=== PATIENT | male | born 1985 | race Two or more races ===

== ENCOUNTER 2025-02-20 11:44 | Emergency (ER) | payer MEDICAID, OTHER ==
[~2025-02-20] VITALS: Ht 175.3 cm; Wt 94.1 kg
--- NOTE | 2025-02-20 13:31 | ED.PDOC ---
History of Present Illness HPI Comments 39-year-old male with no reported PMHx presents with a chief complaint of cough, nasal congestion, and fever x 3 days. Patient states that he feels increasingly SOB, especially at night. Patient is sating well on room air and able to speak in full complete sentences. No use of supplemental oxygen. Patient mentions that he feels congested and sounds very nasally. Patient denies any sick contacts at home. No other symptoms or modifying factors present at this time. Chief Complaint: Flu like Time Seen by MD: 13:22 Reviewed Notes: Nurses Notes, Medications, Allergies Allergies: Coded Allergies: NO KNOWN ALLERGIES (Unverified , 02/20/25) Home Meds Active Scripts Guaifenesin (Mucinex) 600 Mg Tab, 1 TAB PO BID for 7 Days, #14 TAB 0 Refills Prov:AUDREY LERMA NP 02/20/25 Promethazine-Dm (Promethazine Dm 6.25-15 mg/5Ml) 1 Alice Alice, 5 ML PO TID for 10 Days, #150 ML 0 Refills Prov:AUDREY LERMA NP 02/20/25 Ibuprofen Micronized (Ibuprofen) 600 Mg Tab, 600 MG PO TIDPRN PRN for 10 Days, #30 TAB 0 Refills Prov:AUDREY LERMA NP 02/20/25 Amoxicillin & Pot Clavulanate (AUGMENTIN TABLET) 875 Mg Tb, 875 MG PO BID for 7 Days, #14 TAB 0 Refills Prov:AUDREY LERMA NP 02/20/25 Loratadine (Loratadine) 10 Mg Tab, 10 MG PO DAILY for 30 Days, #30 TAB 0 Refills Prov:AUDREY LERMA NP 02/20/25 Fluticasone Propionate (Nasal) (Flonase Allergy Relief) 50 Mcg/Act Spr, 50 MCG N A DAILY for 30 Days, #1 SPRAY 0 Refills Prov:AUDREY LERMA NP 02/20/25 Sodium Chloride-Sodium Bicarbo (Neti Pot Kit Sinus Wash/C 2300-700 mg) 1 Kit Kit, 1 KIT NA UD for 30 Days, #1 KIT 0 Refills Prov:AUDREY LERMA NP 02/20/25 Information Source: Patient Mode of Arrival: Ambulatory Severity: Moderate Timing: Days Duration: Since onset Prehospital treatment: None Past Medical History PAST MEDICAL HISTORY: Denies Surgical History: Denies all surgeries Family History Family History: Reviewed,noncontributory to illness Social History Smoker: Non-Smoker Alcohol: Denies ETOH Use Drugs: Denies Drug Use Lives In: Home Constitutional: reports: fever; denies: chills, diaphoresis, fatigue, malaise, sweats, weakness, others EENTM: reports: nose congestion; denies: blurred vision, double vision, ear bleeding, ear discharge, ear drainage, ear pain, ear ringing, eye pain, eye redness, hearing loss, mouth pain, mouth swelling, nasal discharge, nose bleeding, nose pain, photophobia, tearing, throat pain, throat swelling, voice changes, others Respiratory: reports: cough; denies: hemoptysis, orthopnea, SOB at rest, shortness of breath, SOB with excertion, stridor, wheezing, others Cardiovascular: denies: chest pain, dizzy spells, diaphoresis, Dyspnea on exertion, edema, irregular heart beat, left arm pain, lightheadedness, palpitations, PND, syncope, others Gastrointestinal: denies: abdomen distended, abdominal pain, blood streaked bowels, constipated, diarrhea, dysphagia, difficulty swallowing, hematemesis, melena, nausea, poor appetite, poor fluid intake, rectal bleeding, rectal pain, vomiting, others Genitourinary: denies: burning, dysuria, flank pain, frequency, hematuria, incontinence, penile discharge, penile sore, pain, testicle pain, testicle s welling, urgency, others Neurological: denies: dizziness, fainting, headache, left sided numbness, left sided weakness, numbness, paresthesia, pre-existing deficit, right sided numbness, right sided weakness, seizure, speech problems, tingling, tremors, weakness, others Musculoskeletal: denies: back pain, gout, joint pain, joint swelling, muscle pain, muscle stiffness, neck pain, others Integumetry: denies: bruises, change in color, change in hair/nails, dryness, laceration, lesions, lumps, rash, wounds, others Allergic/Immunocompromised: denies: Difficulty Healing, Frequent Infections, Hives, Itching, others Hematologic/Lymphatic: denies: anemia, blood clots, easy bleeding, easy bruising, swollen glands, others Endocrine: denies: excessive hunger, excessive sweating, excessive thirst, excessive urination, flushing, intolerance to cold, intolerance to heat, unexplained weight gain, unexplained weight loss, others Psychiatric: denies: anxiety, bipolar disorder, depression, hopeless, panic disorder, schizophrenia, sleepless, suicidal, others All Other Systems: Reviewed and Negative Physical Exam General Appearance: No Apparent Distress, Normal HEENT: Normal ENT Inspection, Pharynx Normal, TMs Normal, Other (Frontal and maxillary TTP) Neck: Full Range of Motion, Non-Tender, Normal, Normal Inspection Respiratory: Chest Non-Tender, Lungs Clear, No Accessory Muscle Use, No Respiratory Distress, Normal Breath Sounds Cardiovascular: No Edema, No JVD, No Murmur, No Gallop, Normal Peripheral Pulses, Regular Rate/Rhythm Breast Exam: Deferred Gastrointestinal: No Organomegaly, Non Tender, No Pulsatile Mass, Normal Bowel Sounds, Soft Genitalia: Deferred Pelvic: Deferred Rectal: Deferred Extremities: No calf tenderness, Normal capillary refill, Normal inspection, Normal range of motion, Non-tender, No pedal edema Musculoskeletal : Apperance: Normal Neurologic: Alert, floor layer tile II-XII nml as Tested, No Motor Deficits, Normal Affect, Normal Mood, No Sensory Deficits Cerebellar Function: Normal Reflexes: Normal Skin: Dry, Normal Color, Warm Lymphatic: No Adenopathy Was a procedure done? Was a procedure done?: No Differential Dx Considerations may include: URI, sinusitis, pharyngitis, viral syndrome X-Ray, Labs, Meds, VS Vital Signs Date Time Temp Pulse Resp B/P (MAP) Pulse Ox O2 Delivery O2 Flow Rate FiO2 02/20/25 12:04 97.7 88 20 149/59 (89) 97 97.7 X-Ray, Labs, Meds, VS Comment Differential considered but not limited to frontal headache, migraine, URI. I a lso considered orbital cellulitis, osteomyelitis, cerebral abscess, meningitis, frontal bone abscess (Pott puffy tumor), however, this is less likely as the patient does not have any red flags. Patient is not immunocompromised, they are non-toxic, there are no high fevers and do not present with an intractable headache, During the physical exam there was TTP over the frontal and maxillary sinuses consistent with sinusitis therefore routine imaging such as CT was deferred during this visit. Prescribed antibiotics for presentation of symptoms. Complete course of antibiotic therapy even if symptoms improve or resolve. There should be no leftover antibiotics as this can lead to antibiotic resistant bacteria and even worse infection. Potential side effects discussed including abdominal pain, nausea, diarrhea. Also recommend antihistamines, decongestants and antipyretics as needed. Time of 1ST Reevaluation: 13:52 Reevaluation 1ST: Improved Patient Education/Counseling: Diagnosis, Treatment Family Education/Counseling: No Family Present Departure 1 Departure Time of Disposition: 13:33 Impression: Primary Impression: Sinusitis Qualified Codes: J01.10 - Acute frontal sinusitis, unspecified Disposition: HOME / SELF CARE / HOMELESS Condition: Fair e-Prescriptions Guaifenesin (Mucinex) 600 Mg Tab 1 TAB PO BID for 7 Days, #14 TAB 0 Refills Prov: AUDREY LERMA NP 02/20/25 Promethazine-Dm (Promethazine Dm 6.25-15 mg/5Ml) 1 Alice Alice 5 ML PO TID for 10 Days, #150 ML 0 Refills Prov: AUDREY LERMA NP 02/20/25 Ibuprofen Micronized (Ibuprofen) 600 Mg Tab 600 MG PO TIDPRN PRN for 10 Days, #30 TAB 0 Refills Prov: AUDREY LERMA NP 02/20/25 Amoxicillin & Pot Clavulanate (AUGMENTIN TABLET) 875 Mg Tb 875 MG PO BID for 7 Days, #14 TAB 0 Refills Prov: AUDREY LERMA NP 02/20/25 Loratadine (Loratadine) 10 Mg Tab 10 MG PO DAILY for 30 Days, #30 TAB 0 Refills Prov: AUDREY LERMA NP 02/20/25 Fluticasone Propionate (Nasal) (Flonase Allergy Relief) 50 Mcg/Act Spr 50 MCG NA DAILY for 30 Days, #1 SPRAY 0 Refills Prov: AUDREY LERMA NP 02/20/25 Sodium Chloride-Sodium Bicarbo (Neti Pot Kit Sinus Wash/C 2300-700 mg) 1 Kit Kit 1 KIT NA UD for 30 Days, #1 KIT 0 Refills Prov: AUDREY LERMA NP 02/20/25 Critical Care Note Critical Care Time?: No Stability Stability form required: No Heart Score Heart Score: Heart Score Response (Comments) Value History N/A 0 EKG N/A 0 Age N/A 0 Risk Factors N/A 0 Troponin N/A 0 Total 0 I personally scribed for AUDREY LERMA NP ([email or web address]) on 02/20/25 at 13:31. Electronically submitted by Bharath Oliver [email or web address]). AUDREY LERMA NP February 20, 2025 13:31
[2025-02-20] MEDS ORDERED: IBUP1TAB5 PO (13:37)
[2025-02-20] MEDS ORDERED: GUAI600T78 PO (13:37)
[2025-02-20] MEDS ORDERED: AUG875T PO (13:37)
[2025-02-20] MEDS ORDERED: LORA-1126 PO (13:37)
[2025-02-20] MEDS ORDERED: SODI1KIT2 (13:37)
[2025-02-20] MEDS ORDERED: FLUT1SPR5 (13:37)
[2025-02-20] MEDS ORDERED: PROM1SOL4 PO (13:37)
[2025-02-20 13:51] VITALS: BP 132/52; PULSE 78; RESP 16; TEMP 98; O2SAT 97
== END 2025-02-20 13:52 | disposition home or self-care (01) ==
LOC: ER 11:55
DX: J32.9 Chronic sinusitis, unspecified (principal); R50.9 Fever, unspecified

== ENCOUNTER 2025-04-07 00:21 | Emergency (ER) | payer MEDICAID, OTHER ==
[~2025-04-07] VITALS: Ht 175.3 cm; Wt 93.0 kg
[~2025-04-07 00:21] MED LIST: AUG875T PO; FLUT1SPR5; GUAI600T78 PO; IBUP1TAB5 PO; LORA-1126 PO; PROM1SOL4 PO; SODI1KIT2
[2025-04-07 02:04] LABS: Hematocrit 46.9 % (41.0-53.0); Hemoglobin 15.9 g/dL (13.5-17.5); Mean Corpuscular Hemoglobin 29.9 pg (28.0-32.0); Mean Corpuscular Volume 88.3 fL (80.0-100.0); Nucleated Red Blood Cells % 0.1 %
--- NOTE | 2025-04-07 02:08 | DVH ---
EXAM: XY CHEST TWO VIEWS ROUTINE CLINICAL HISTORY: DIZZINESS TECHNIQUE: Frontal and Views of the chest WID: COMPARISON: None FINDINGS: Lines and tubes: None Chest: The heart size and pulmonary vasculature is within normal limits. No pleural effusion, pneumothorax, or consolidation. The osseous structures are grossly intact. Mild multilevel thoracic spondylosis. IMPRESSION: No acute cardiopulmonary abnormality.
[2025-04-07 02:26] LABS: Alanine Aminotransferase 30 U/L (7-40); Alkaline Phosphatase 57 U/L (46-116); Anion Gap 12 (5-15); BUN/Creatinine Ratio 18.5 (10.0-20.0); Calcium 9.3 mg/dL (8.7-10.4); Carbon Dioxide 22 mmol/L (20-31); Chloride 103 mmol/L (98-107); Glucose 105 mg/dL (74-106); Magnesium 2.1 mg/dL (1.6-2.6); Potassium 3.8 mmol/L (3.5-5.1); Sodium 137 mmol/L (136-145); Total Protein 7.6 g/dL (5.7-8.2)
[2025-04-07 02:27] LABS: Bilirubin, Total 1.0 mg/dL (0.2-1.0)
[2025-04-07 02:28] LABS: Urine Protein, UAD TRACE (Negative)
[2025-04-07 02:31] LABS: Albumin 4.8 g/dL (3.2-4.8); Blood Urea Nitrogen 23 mg/dL (9-23)
[2025-04-07 03:05] LABS: Amphetamine Screen, Urine Neg (NEGATIVE)
[2025-04-07 03:06] LABS: Barbiturate Scree,Urine Neg (NEGATIVE); Benzodiazephine Screen, Urine Neg (NEGATIVE); Cannabinoid Screen, Urine Pos (NEGATIVE); Cocaine Screen, Urine Neg (NEGATIVE); Opiate Scree,Urine Neg (NEGATIVE); Phencyclidine Screen, Urine Neg (NEGATIVE)
[2025-04-07 03:39] VITALS: BP 101/58; PULSE 53; RESP 18; TEMP 97.6; O2SAT 97
[2025-04-07] MEDS: SODIUM CHLORIDE 0.9% 1,000 ML IV ONE (03:47)
[2025-04-07] MEDS ORDERED: MECL-90 PO (04:24)
--- NOTE | 2025-04-07 04:25 | ED.PDOC ---
HPI (NEURO) HPI Comments PT PRESENTED TO ED FOR SUDDEN ONSET DIZZINESS X2 HOURS WITH BLURRED VISION. PT DENIED NAUSEA. BEFAST NEGATIVE. Chief Complaint: Dizziness Time Seen by MD: 01:23 Reviewed Notes: Nurses Notes, Medications, Allergies Information Source: Patient Mode of Arrival: Ambulatory Past Medical History PAST MEDICAL HISTORY: Denies Surgical History: Denies all surgeries Family History Family History: Reviewed,noncontributory to illness Social History Smoker: Non-Smoker Alcohol: Denies ETOH Use Drugs: Denies Drug Use Lives In: Home X-Ray, Labs, Meds, VS Vital Signs Date Time Temp Pulse Resp B/P (MAP) Pulse Ox O2 Delivery O2 Flow Rate FiO2 04/07/25 03:39 97.6 53 18 101/58 (72) 97 97.6 04/07/25 01:39 77 04/07/25 01:32 98.7 92 20 135/73 (93) 96 98.7 Lab Test 04/07/25 01:36 04/07/25 01:35 04/07/25 01:30 Range/Units White Blood Count 10.9 H 4.4-10.8 10^3/uL Red Blood Count 5.31 4.5-5.90 10^6/uL Hemoglobin 15.9 13.5-17.5 g/dL Hematocrit 46.9 41.0-53.0 % Mean Corpuscular Volume 88.3 80.0-100.0 fL Mean Corpuscular Hemoglobin 29.9 28.0-32.0 pg Mean Corpuscular Hemoglobin Concent 33.9 32.0-36.0 g/dL Red Cell Distribution Width 14.6 H 11.8-14.3 % Platelet Count 272 140-450 10^3/uL Mean Platelet Volume 8.1 6.9-10.8 fL Neutrophils (%) (Auto) 70.3 37.0-80.0 % Lymphocytes (%) (Auto) 22.4 10.0-50.0 % Monocytes (%) (Auto) 6.6 0.0-12.0 % Eosinophils (%) (Auto) 0.2 0.0-7.0 % Basophils (%) (Auto) 0.5 0.0-2.0 % Neutrophils # (Auto) 7.7 1.6-8.6 10 ^3/uL Lymphocytes # (Auto) 2.4 0.4-5.4 10 ^3/uL Monocytes # (Auto) 0.7 0-1.3 10 ^3/uL Eosinophils # (Auto) 0 0-0.8 10 ^3/uL Basophils # (Auto) 0.1 0-0.2 10 ^3/uL Nucleated Red Blood Cells 0.1 % Sodium Level 137 136-145 mmol/L Potassium Level 3.8 3.5-5.1 mmol/L Chloride Level 103 98-107 mmol/L Carbon Dioxide Level 22 20-31 mmol/L Anion Gap 12 5-15 Blood Urea Nitrogen 23 9-23 mg/dL Creatinine 1.24 0.700-1.30 mg/dL Glomerular Filtration Rate Calc 77 >90 mL/min BUN/Creatinine Ratio 18.5 10.0-20.0 Serum Glucose 105 74-106 mg/dL Calcium Level 9.3 8.7-10.4 mg/dL Magnesium Level 2.1 1.6-2.6 mg/dL Total Bilirubin 1.0 0.2-1.0 mg/dL Aspartate Amino Transferase (AST) 51 H 13-40 U/L Alanine Aminotransferase (ALT) 30 7-40 U/L Alkaline Phosphatase 57 46-116 U/L Troponin I High Sensitivity 3 L </=54 ng/L Total Protein 7.6 5.7-8.2 g/dL Albumin 4.8 3.2-4.8 g/dL Thyroid Stimulating Hormone (TSH) 0.87 0.55-4.78 uIU/mL Urine Color Yellow Yellow Urine Clarity Clear Clear Urine pH 5.5 5.0-9.0 Urine Specific [place] 1.038 H 1.001-1.035 Urine Protein Trace H Negative Urine Ketones 2+ H Negative Urine Blood Negative Negative /uL Urine Nitrite Negative Negative Urine Bilirubin Negative Negative Urine Urobilinogen Normal Negative mg/dL Urine Leukocyte Esterase 2+ Negative /uL Urine RBC 1 0 - 3 /hpf Urine Microscopic WBC 3 0-3 /HPF Urine Squamous Epithelial Cells Few <5 /hpf Urine Bacteria None seen None Seen /hpf Urine Mucus Few None Seen Urine Glucose Normal Normal mg/dL Urine Opiates Screen Neg NEGATIVE Urine Fentanyl Screen Neg NEGATIVE Urine Barbiturates Screen Neg NEGATIVE Urine Phencyclidine Screen Neg NEGATIVE Urine Amphetamines Screen Neg NEGATIVE Urine Benzodiazepines Screen Neg NEGATIVE Urine Cocaine Screen Neg NEGATIVE Urine Cannabinoids Screen Pos NEGATIVE POC Glucose 116 H 70-106 mg/dl Current Medications Medications (Trade) Dose Ordered Sig/Tima Route Start Time Stop Time Status Last Admin Sodium Chloride 1,000 ml @ 1,000 mls/hr Q1H ONCE IV 04/07/25 03:15 04/07/25 04:14 DC 04/07/25 03:47 Time of 1ST Reevaluation: 01:23 Reevaluation 1ST: Unchanged Reevaluation 2ND: Improved Patient Education/Counseling: Diagnosis, Treatment, Prognosis, Need For Follow Up Family Education/Counseling: Diagnosis, Treatment, Prognosis, Need For Follow Up Departure 1 Departure Time of Disposition: 04:23 Impression: Primary Impression: Vertigo Disposition: 01 HOME / SELF CARE / HOMELESS Condition: Stable e-Prescriptions Meclizine Hcl (Meclizine Hcl) 25 Mg Tab 25 MG PO BID PRN for 6 Days, #12 TAB Prov: IDANIA KILGORE 04/07/25 Discharged With: Relative (Sibling) Critical Care Note Critical Care Time?: No Stability Stability form required: No IDANIA KILGORE Apr 07, 2025 04:25
[2025-04-07] MEDS: MECLIZINE HCL 25 MG TAB PO ONE (04:27)
--- NOTE | 2025-04-08 06:56 | ECG ---
[facility] Test Date: 2025-04-07 Test Time: 01:32:14 Pat Name: GERRY ALONZO Department: ED Room: Gender: M Adjunct Instructor: ZARA : 1985 Requested By: IDANIA KILGORE Order Number: [id number] Reading MD: Measurements Intervals [place] Rate: 77 P: 58 NE: 152 QRS: 43 QRSD: 85 T: 37 QT: 368 QTc: 417 Interpretive Statements Sinus rhythm Abnormal R-wave progression, early transition Borderline ST elevation, anterior leads Please click the below link to view image of tracing.
== END 2025-04-07 04:33 | disposition home or self-care (01) ==
LOC: ER 00:21
DX: R42 Dizziness and giddiness (principal); Z79.899 Other long term (current) drug therapy
CPT/HCPCS: 36415; 71046; 80053; 80307; 81001; 82947; 83735; 84443; 84484; 85025; 93005; 96360; 99285; J7030; J8597; 82962

== ENCOUNTER 2025-05-11 13:20 | Emergency (ER) | payer OTHER ==
[~2025-05-11] VITALS: Ht 175.3 cm; Wt 93.0 kg
[2025-05-11 13:21] VITALS: BP 112/55; PULSE 72; RESP 18; TEMP 97.8; O2SAT 96
--- NOTE | 2025-05-11 14:42 | ED.PDOC ---
Musculoskeletal HPI Comments A 39-YEAR-OLD MALE WITH NO PMHx PRESENTS WITH A CHIEF COMPLAINT OF LEFT ELBOW PAIN X ONSET THIS MORNING. PATIENT STATES THAT HE IS UNABLE TO FULLY EXTEND HIS LEFT ELBOW. PATIENT REPORTS THAT HE SPONTANEOUSLY STARTED TO FEEL THIS WAY THIS MORNING. PER PT, POSSIBLE SLEEP POSITION CAUSED HIS LEFT ELBOW PAIN. PT DENIES FALL INJURY AND OTHER COMPLAINTS. PATIENT HAS NO DEFORMITIES AT THIS TIME. NO OTHER SYMPTOMS OR MODIFYING FACTORS PRESENT AT THIS TIME. Chief Complaint: Upper Extremity Time Seen by MD: 14:34 Reviewed Notes: Nurses Notes, Medications, Allergies Allergies: Coded Allergies: NO KNOWN ALLERGIES (Unverified , 02/20/25) Home Meds Active Scripts Guaifenesin (Mucinex) 600 Mg Tab, 1 TAB PO BID for 7 Days, #14 TAB 0 Refills Prov:AUDREY LERMA NP 02/20/25 Promethazine-Dm (Promethazine Dm 6.25-15 mg/5Ml) 1 Alice Alice, 5 ML PO TID for 10 Days, #150 ML 0 Refills Prov:AUDREY LERMA NP 02/20/25 Ibuprofen Micronized (Ibuprofen) 600 Mg Tab, 600 MG PO TIDPRN PRN for 10 Days, #30 TAB 0 Refills Prov:AUDREY LERMA NP 02/20/25 Amoxicillin & Pot Clavulanate (AUGMENTIN TABLET) 875 Mg Tb, 875 MG PO BID for 7 Days, #14 TAB 0 Refills Prov:AUDREY LERMA NP 02/20/25 Loratadine (Loratadine) 10 Mg Tab, 10 MG PO DAILY for 30 Days, #30 TAB 0 Refills Prov:AUDREY LERMA NP 02/20/25 Fluticasone Propionate (Nasal) (Flonase Allergy Relief) 50 Mcg/Act Spr, 50 MCG NA DAILY for 30 Days, #1 SPRAY 0 Refills Prov:AUDREY LERMA NP 02/20/25 Sodium Chloride-Sodium Bicarbo (Neti Pot Kit Sinus Wash/C 2300-700 mg) 1 Kit Kit, 1 KIT NA UD for 30 Days, #1 KIT 0 Refills Prov:AUDREY LERMA NP 02/20/25 Information Source: Patient Mode of Arrival: Ambulatory Location: Left Extremity Location: Elbow Timing: Hours Prehospital treatment: None Severity: Moderate Able to Move Extremity: No Bear Weight: Limited Pain: Moderate Hand Dominance: Right Mechanism: Spontaneous Circumstances: Spontaneous Onset of Symptoms: Spontaneous Symptoms: Pain DVT Risk Factors: NONE Last Tetanus: UTD Associated signs and symptoms: Elbow pain Past Medical History PAST MEDICAL HISTORY: Denies Surgical History: Denies all surgeries Family History Family History: Reviewed,noncontributory to illness Social History Smoker: Non-Smoker Alcohol: Denies ETOH Use Drugs: Denies Drug Use Lives In: Home Constitutional: denies: chills, diaphoresis, fatigue, fever, malaise, sweats, weakness, others EENTM: denies: blurred vision, double vision, ear bleeding, ear discharge, ear drainage, ear pain, ear ringing, eye pain, eye redness, hearing loss, mouth pain, mouth swelling, nasal discharge, nose bleeding, nose congestion, nose pain, photophobia, tearing, throat pain, throat swelling, voice changes, others Respiratory: denies: cough, hemoptysis, orthopnea, SOB at rest, shortness of breath, SOB with excertion, stridor, wheezing, others Cardiovascular: denies: chest pain, dizzy spells, diaphoresis, Dyspnea on exertion, edema, irregular heart beat, left arm pain, lightheadedness, palpitations, PND, syncope, others Gastrointestinal: denies: abdomen distended, abdominal pain, blood streaked bowels, constipated, diarrhea, dysphagia, difficulty swallowing, hematemesis, melena, nausea, poor appetite, poor fluid intake, rectal bleeding, rectal pain, vomiting, others Genitourinary: denies: burning, dysuria, flank pain, frequency, hematuria, incontinence, penile discharge, penile sore, pain, testicle pain, testicle swelling, urgency, others Neurological: denies: dizziness, fainting, headache, left sided numbness, left sided weakness, numbness, paresthesia, pre-existing deficit, right sided numbness, right sided weakness, seizure, speech problems, tingling, tremors, weakness, others Musculoskeletal: reports: joint pain, muscle pain; denies: back pain, gout, joint swelling, muscle stiffness, neck pain, others Integumetry: denies: bruises, change in color, change in hair/nails, dryness, laceration, lesions, lumps, rash, wounds, others Allergic/Immunocompromised: denies: Difficulty Healing, Frequent Infections, H crystal, Itching, others Hematologic/Lymphatic: denies: anemia, blood clots, easy bleeding, easy bruising, swollen glands, others Endocrine: denies: excessive hunger, excessive sweating, excessive thirst, excessive urination, flushing, intolerance to cold, intolerance to heat, unexplained weight gain, unexplained weight loss, others Psychiatric: denies: anxiety, bipolar disorder, depression, hopeless, panic disorder, schizophrenia, sleepless, suicidal, others All Other Systems: Reviewed and Negative Physical Exam General Appearance: No Apparent Distress, Normal HEENT: Normal ENT Inspection, PERRL/EOMI, Pharynx Normal, TMs Normal Neck: Full Range of Motion, Non-Tender, Normal, Normal Inspection Respiratory: Chest Non-Tender, Lungs Clear, No Accessory Muscle Use, No Respiratory Distress, Normal Breath Sounds Cardiovascular: No Edema, No JVD, No Murmur, No Gallop, Normal Peripheral Pulses, Regular Rate/Rhythm Breast Exam: Deferred Gastrointestinal: No Organomegaly, Non Tender, No Pulsatile Mass, Normal Bowel Sounds, Soft Genitalia: Deferred Pelvic: Deferred Rectal: Deferred Extremities: Decreased range of motion (SLIGHTLY. ), No calf tenderness, Normal capillary refill, Normal inspection, No pedal edema, Tender (LEFT ELBOW, NO BONY TENDERNESS, SWELLING AND DEFORMITY. ) Musculoskeletal : Apperance: Normal Neurologic: Alert, smoke and flame specialist II-XII nml as Tested, No Motor Deficits, Normal Affect, Normal Mood, No Sensory Deficits Cerebellar Function: Normal Reflexes: Normal Skin: Dry, Normal Color, Warm Peripheral Pulses: 2+ carotid (R), 2+ carotid (L), 2+ Radial (R), 2+ Radial (L) Lymphatic: No Adenopathy Was a procedure done? Was a procedure done?: No Differential Diagnosis EXT Differential Diagnosis: Fracture, Sprain, Gout, DJD, Strain X-Ray, Labs, Meds, VS Vital Signs Date Time Temp Pulse Resp B/P (MAP) Pulse Ox O2 Delivery O2 Flow Rate FiO2 05/11/25 13:21 97.8 72 18 112/55 96 97.8 PATIENT: MARY ALONZOCCT: [id number]: [id number] : 1985 LOC: ER ROOM / BED: / AGE / SEX: 39 / M ADM STATUS: REG ER SERVICE [id number] ORDERING PHYSICIAN: GALLITO MORALES PROCEDURE(s): LELB3 - L ELBOW 3 VIEW XRAY REASON: PAIN, NO INJURY ORDER NUMBER(s): [id number], ACCESSION NUMBER(s): [id number] X-ray left elbow Technique: AP lateral and oblique views REASON FOR EXAM: PAIN, NO INJURY INDICATION: PAIN, NO INJURY FINDINGS: No fractures or dislocations. No erosions or periosteal reaction. Articular surfaces are smooth. No joint effusion IMPRESSION: 1. No bony pathology ATED BY: YON HURLEY MD DICTATED DATE/TIME: 05/11/251512 SIGNED BY: YON HURLEY MD SIGNED DATE/TIME: 05/11/251512 CC: X-Ray, Labs, Meds, VS Comment EXTERNAL MEDICAL RECORDS REVIEWED: [NONE] INDEPENDENT HISTORIANS: [NONE] SOCIAL DETERMINANTS OF HEALTH: [NONE] LABS ORDERED: NONE REVIEWED AND INTERPRETED RESULTS: NONE IMAGING ORDERED: L ELBOW X-RAY TREATMENTS ORDERED: PROCEDURES PERFORMED: NONE CRITICAL CARE TIME: NONE I HAVE DISCUSSED THE PATIENT WITH THE ATTENDING PHYSICIAN DR. ADALI SANTANA AND SHE AGREES WITH THE PATIENT'S PLAN OF CARE AND DISPOSITION. BASED ON HISTORY OF PRESENT ILLNESS, AND PHYSICAL EXAM, PATIENT WILL BE DISCHARGED HOME. DISCUSSED PLAN FOR DISCHARGE HOME WITH RX []. MEDICATION WARNINGS GIVEN. SHARED DECISION MAKING: DISCUSSED WITH PATIENT THAT THEIR WORKUP WAS NORMAL. PATIENT INSTRUCTED TO FOLLOW UP WITH PRIMARY CARE PROVIDER IN 1-2 DAYS FOR RE- EVALUATION OF SYMPTOMS. PATIENT VERBALIZES UNDERSTANDING TO RETURN TO ED FOR NEW OR WORSENING SYMPTOMS OR IF FOLLOW UP WITH PCP CANNOT BE OBTAINED. PATIENT FEELS COMFORTABLE GOING HOME AT THIS TIME. ALL QUESTIONS ADDRESSED AT TIME OF DISCHARGE. Time of 1ST Reevaluation: 15:34 Reevaluation 1ST: Improved Patient Education/Counseling: Diagnosis, Treatment, Need For Follow Up Family Education/Counseling: Diagnosis, Treatment, Need For Follow Up Medical Screening: No EMC Exist At This Time Departure 1 Departure Time of Disposition: 15:34 Impression: Primary Impression: Pain in left elbow Disposition: 01 HOME / SELF CARE / HOMELESS Condition: Stable Additional Instructions: FOLLOW-UP WITH PCP IN 1 TO 2 DAYS. TAKE MEDICATIONS PRESCRIBED. RETURN TO ED FOR ANY NEW OR WORSENING SYMPTOMS. Discharged With: Self Critical Care Note Critical Care Time?: No Stability Stability form required: No Heart Score Heart Score: Heart Score Response (Comments) Value History N/A 0 EKG N/A 0 Age N/A 0 Risk Factors N/A 0 Troponin N/A 0 Total 0 I personally scribed for GALLITO MORALES ([email or web address]) on 05/11/25 at 14:42. Electronically submitted by Bharath Oliver ([email or web address]). GALLITO MORALES May 11, 2025 14:42
--- NOTE | 2025-05-11 15:15 | DVH ---
X-ray left elbow Technique: AP lateral and oblique views REASON FOR EXAM: PAIN, NO INJURY INDICATION: PAIN, NO INJURY FINDINGS: No fractures or dislocations. No erosions or periosteal reaction. Articular surfaces are sm ooth. No joint effusion IMPRESSION: 1. No bony pathology
[2025-05-11] MEDS ORDERED: TRIA0.02 TOP (17:35)
[2025-05-11] MEDS ORDERED: IBUP-1456 PO (17:35)
== END 2025-05-11 15:37 | disposition home or self-care (01) ==
LOC: ER 13:20
DX: M25.522 Pain in left elbow (principal)
CPT/HCPCS: 73080